=== PATIENT | female | born 1995 | race Caucasian/White ===

== ENCOUNTER 2017-06-05 19:59 | Emergency (ER) | payer MEDICAID, OTHER ==
[~2017-06-05] VITALS: Ht 162.6 cm; Wt 59.1 kg
[2017-06-05] MEDS ORDERED: BACTDSB PO (20:20)
[2017-06-05] MEDS ORDERED: POVIDONE-IODINE 10% 15 ML SOLUTION UD TP ONE (21:15)
[2017-06-05] MEDS ORDERED: LIDOCAINE HCL 1% 10 ML VIAL INJ ONE (21:15)
[2017-06-05] MEDS ORDERED: BUPIVACAINE HCL/PF 0.25% 10 ML VIAL INJ ONE (21:15)
[2017-06-05 22:10] VITALS: BP 134/81
== END 2017-06-05 22:12 | disposition home or self-care (01) ==
LOC: EMS 20:02
DX: L03.012 Cellulitis of left finger (principal); R03.0 Elevated blood-pressure reading, without diagnosis of hypertension; F17.210 Nicotine dependence, cigarettes, uncomplicated
CPT/HCPCS: 10060; 99283; J3490 ×2

== ENCOUNTER 2022-02-11 15:04 | Emergency (ER) | payer MEDICAID, OTHER ==
[~2022-02-11] VITALS: Ht 162.6 cm; Wt 77.2 kg
[~2022-02-11 15:04] MED LIST: BACTDSB PO
[2022-02-11 17:38] LABS: COVID AG,FIA SOURCE NASAL SWAB
[2022-02-11 17:45] VITALS: BP 112/86
== END 2022-02-11 18:39 | disposition home or self-care (01) ==
LOC: EMS 15:04
DX: Z20.822 Contact with and (suspected) exposure to COVID-19 (principal); F17.210 Nicotine dependence, cigarettes, uncomplicated; Z86.16 Personal history of COVID-19; Z87.440 Personal history of urinary (tract) infections; Z98.890 Other specified postprocedural states
CPT/HCPCS: 99283